=== PATIENT | male | born 1950 | race Caucasian/White ===

== ENCOUNTER 2019-01-13 14:35 | Emergency (ER) ==
[2019-01-13 14:52] VITALS: BP 139/83; TEMP 99.1; BMI 28.6
--- NOTE | 2019-01-13 15:15 | ED.PDOC ---
General ED Provider: Dr. CHAITANYA VILLA Chief Complaint: Syncope Stated Complaint: Dizziness with Near syncope. States got up last night and developed dizziness. Descriptions of vertigo which eased when he sat down and leaned forward. 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 Home Care Manager recommended he go to ER for evaluation since he is visiting here as he was travelling back home to [place] and stopped in this area yesterday. [place] [facility] [place] [facility] Last evening he ate a meal at [employer] and drank a couple of beers. Went home and sat up watching TV and at around 2 AM got up to use Bathroom when he suddenly became dizzy and felt like he was going to pass out. His physicians office contacted him to confirm appt next week and after he told them what had happened they advised him to go to the ER as it would not be safe for him to drive his motor home back to [place]. Has a known past hx of cavernous Cerebral hemangiomas for many years and had updated MRI/MRA last year which confirmed stability. Time Seen by Physician: 14:50 Mode of Arrival: Walk-In Information Source: Patient Exam Limitations: No limitations Referred to ED by: PCP Nursing and Triage Documentation Reviewed and Agree: Yes Does patient meet sepsis criteria?: No System Inflammatory Response Syndrome: Not Applicable Sepsis Protocol: For patient's 13 years and over: Temp is 96.8 and below OR 101 and greater Pulse >90 BPM Resp >20/minute Acutely Altered Mental Status Are patient's symptoms suggestive of a new infection, such as: -Pneumonia -Skin, Soft Tissue -Endocarditis -UTI -Bone, Joint Infection -Implantable Device -Acute Abdominal Infection -Wound Infection -Meningitis -Blood Stream Catheter Infection -Unknown Neurological Complaint Exam - Dizziness Complaint/Exam Last Known Well: Yesterday Onset: Sudden Duration: several days Symptoms Are: Resolved Timing: Intermittent Episodes Lasting: Minutes Initial Severity: Moderate Current Severity: Mild Character: Reports: Lightheaded Aggravating: Reports: Exertion, Position change, Supine to erect, Change in head position Alleviating: Reports: Rest (Sitting up and bending forward) Associated Signs and Symptoms: Reports: Nausea, Decreased oral intake, Loss of balance Related History: Similar episode Cardiac Risk Factors: Reports: Hypertension (afib/resolved/ on ) CVA Risk Factors: Reports: Hypertension Related Surgical History: Reports: None JVD Present: No Carotid Bruit Present: No Nystagmus Present: No Gag Reflex Present: Yes Meningeal Signs Positive: No Focal Weakness: Present: None Focal Sensory Loss: Present: None Gait: Normal [id number]: Normal Findings Babinski Sign: Negative Right, Negative Left Heel to Toe Normal: Yes [place]-Hallpike Test Positive: No Differential Diagnoses: Labyrinthitis, Metabolic abnormalities, Vasovagal reaction Review of Systems - Review Of Systems Constitutional: Reports: No symptoms Eyes: Reports: No symptoms Ears, Nose, Mouth, Throat: Reports: No symptoms Respiratory: Reports: No symptoms Cardiac: Reports: No symptoms GI: Reports: No symptoms : Reports: No symptoms Musculoskeletal: Reports: No symptoms Skin: Reports: No symptoms Neurological: Reports: No symptoms Endocrine: Reports: No symptoms Hematologic/Lymphatic: Reports: No symptoms All Other Systems: Reviewed and Negative Past Medical History - Past Medical History Previously Healthy: No Endocrine: Reports: Dyslipidemia Cardiovascular: Reports: A-Fib Respiratory: Reports: None Hematological: Reports: None, Other (DVT) Gastrointestinal: Reports: None Genitourinary: Reports: None Neuro/Psych: Reports: None Musculoskeletal: Reports: None Cancer: Reports: None - Surgical History General Surgical History: Reports: None - Family History Family History: Reports: None - Social History Smoking Status: Former smoker Hx Substance Use: No Alcohol Screening: Occasionally Physical Exam - Physical Exam Appearance: Well-appearing, No pain distress, Well-nourished Ill-appearing: None Pain Distress: None Eyes: POLINA, EOMI, Conjunctiva clear ENT: Ears normal, Nose normal, Oropharynx normal Neck: Supple Respiratory: Airway patent Cardiovascular: RRR, Pulses normal, No rub, No murmur GI/: Soft, Nontender, No masses, Bowel sounds normal, No Organomegaly Musculoskeletal: Normal strength, ROM intact, No edema, No calf tenderness Skin: Dry, Normal color Neurological: Sensation intact, Motor intact, Reflexes intact, Cranial nerves intact, Alert, Oriented Psychiatric: Affect appropriate, Mood appropriate Interpretation - Radiology Interpretation Radiology Interpretation By: Radiologist Exam Interpreted: CXR (Neg ), CT Scan (Head. abnormalites Frontal and Mid Brain- Correspond to patients know hx of cerebral hemangiomas) - [employer] Time of [employer] Interpretation: 15:20 Rate: Dedrick Re-Evaluation - Re-Evaluation Time of Re-Evaluation: 18:00 Status: Improved Vital Signs Stable: Yes Appearance: NAD Lungs: Clear Skin: Warm and Dry Neuro: Alert and Oriented X3 CV: RRR Critical Care Note - Critical Care Note Total Time (mins): 60 Course - Course Hematology/Chemistry: 01/13/19 15:30 01/13/19 15:30 Orders, Labs, Meds: Lab Review 01/13/19 01/13/19 01/13/19 15:30 15:30 16:31 WBC 5.65 RBC 4.55 L Hgb 14.5 Hct 43.4 MCV 95.4 H MCH 31.9 H MCHC 33.4 RDW Coeff of Praneeth 14.0 Plt Count 199 Immature Gran % (Auto) 0.4 Neut % (Auto) 68.1 Lymph % (Auto) 20.4 [place] % (Auto) 10.4 H Eos % (Auto) 0.2 Baso % (Auto) 0.5 Immature Gran # (Auto) 0.0 Neut # (Auto) 3.9 Lymph # (Auto) 1.2 [place] # (Auto) 0.6 Eos # (Auto) 0.0 Baso # (Auto) 0.0 Sodium 137.7 Potassium 4.07 Chloride 102.4 Carbon Dioxide 30.2 H Anion Gap 9.17 BUN 22.2 H Creatinine 1.01 Estimated GFR (MDRD) 73.00 BUN/Creatinine Ratio 21.98 Glucose 119.3 H Calcium 9.06 Total Bilirubin 0.50 AST 33.8 ALT 26.1 Alkaline Phosphatase 37.1 L Total Protein 7.04 Albumin 4.48 Globulin 2.56 Albumin/Globulin Ratio 1.75 Urine Color Yellow Urine Clarity Clear Urine pH 7.0 Ur Specific [employer] 1.010 Urine Protein Negative Urine Glucose (UA) Negative Urine Ketones Negative Urine Blood Negative Urine Nitrite Negative Urine Bilirubin Negative Urine Urobilinogen 0.2 Ur Leukocyte Esterase Negative Orders Category Date Time Status EKG-(ED ONLY) Stat CARDIO 01/13/19 15:17 Completed CBC W/ AUTO DIFF Stat LAB 01/13/19 15:30 Completed CMP [COMPREHENSIVE METABOLIC PANEL] Stat LAB 01/13/19 15:30 Completed URINALYSIS C & S IF INDICATED Stat LAB 01/13/19 16:31 Completed CHEST, 2 VIEWS PA & LAT Stat RADS 01/13/19 15:[address] HEAD W/O CONTRAST Stat RADS 01/13/19 15:17 Taken Vital Signs: Temp Pulse Resp BP Pulse Ox 01/13/19 14:35 99.1 F 86 20 139/83 95 Departure - Departure Time of Disposition: 18:00 Disposition: HOME SELF-CARE Discharge Problem: Benign positional vertigo, Benign cerebral hemangioma Instructions: Benign Paroxysmal Positional Vertigo (ED) Condition: Good Pt referred to PMD for follow-up: Yes (See PMD in next week) IPMP verified?: No Allergies/Adverse Reactions: Allergies Iodinated Contrast- Oral and IV Dye Adverse Reaction (Verified 01/13/19 14:51) levofloxacin Adverse Reaction (Verified 01/13/19 14:51) Home Medications: Ambulatory Orders Allopurinol 100 mg PO DAILY 01/13/19 Apixaban [Eliquis] 2.5 mg PO BID 01/13/19 Dorzolamide HCl/Timolol Maleat [Dorzolamide-Timolol Eye Drops] 10 ml OP BID Ezetimibe/Simvastatin [Ezetimibe-Simvastatin 10-10 mg] 1 each PO DAILY 01/13/19 Gabapentin 100 mg PO TID 01/13/19 Hydrochlorothiazide 12.5 mg PO DAILY 01/13/19 Lisinopril 10 mg PO BID 01/13/19 Multivitamin 1 cap PO DAILY 01/13/19 Ubidecarenone [Coenzyme Q-10] 200 mg PO DAILY 01/13/19 Disposition Discussed With: Patient, Family
--- NOTE | 2019-01-13 17:04 | DI ---
Exam: Chest two-view HISTORY: Vertigo. FINDINGS: Two PA views and a lateral view of the chest demonstrate hyper expanded lungs with no evid ence of pneumonia or edema. The heart is normal in size and configuration. The pulmonary vasculatur e is not congested. The skeletal structures are intact. Degenerative findings are noted in the spin e. IMPRESSION: No acute cardiopulmonary disease. Hyperexpanded lungs suggest underlying chronic obstructive pulmonary disease.
--- NOTE | 2019-01-13 17:37 | CT ---
EXAM: CT Head HISTORY: Vertigo COMPARISON: None TECHNIQUE: CT head performed without contrast FINDINGS: Somewhat rounded high density about the right midbrain region, appeasts least partially ext ra-axial, though may have intra-axial component. This measures 0.9 x 0.6 x 1.3 cm. Differential estrella gnosis includes calcified meningioma, aneurysm, and acute hemorrhage. Additionally, there are severa l small foci of high attenuation in the right frontal periventricular white matter, for example image 19 and 22. These are favored represent small regions of calcification, though small hemorrhage not excluded. Chronic ischemic disease of the white matter and cerebral volume loss. No midline shift. The mastoid air cells clear. Paranasal sinuses clear. No depressed calvarial fracture. Elongated appearance of the calvarium. IMPRESSION: 1. Somewhat rounded high density about the right midbrain region, appeasts least partially extra-axi al, though may have intra-axial component. This measures 0.9 x 0.6 x 1.3 cm. Differential diagnosis includes calcified meningioma, aneurysm, and acute hemorrhage. Recommend correlation with MRI/MRA. 2. Several small foci of high attenuation in the right frontal periventricular white matter, likely small areas of calcification, though small foci of hemorrhage cannot be excluded. 3. Chronic ischemic disease of the white matter and cerebral volume loss. Findings called to Dr. Aquino 5:25 p.m. 01/13/2019.
== END 2019-01-13 18:10 | disposition home or self-care (01) ==
LOC: ED 14:35
DX: R55 Syncope and collapse (principal); R42 Dizziness and giddiness; R11.0 Nausea
CPT/HCPCS: 36415; 80053; 81001; 85025; 93005; 93010; 99283